=== PATIENT | male | born 1960 | race Caucasian/White ===

== ENCOUNTER → 2018-02-21 | Outpatient (CLI) | payer OTHER ==
[~2018-02-21] MED LIST: ASPIR-LOW81 MG PO; ASPIRIN E.C. 8181 MG PO; CARDENE 20MG CA20 M1 PO; CELEXA 20MG20 MG/TAB PO; CEPHALEXIN500 M1 PO; EFFIENT10 MG PO; IMDUR 30MG30 MG/TAB PO; LIPITOR 80MG80 MG PO; LOPRESSOR 225 MG/TAB PO; LOPRESSOR PO; NITROSTAT0.4 MG/TAB SL; PLAVIX 75MG TAB75 MG PO; ZESTRIL 5MG5 MG PO; ZOCOR 20MG20 MG PO
== END ==
LOC: COL.RAD 14:36
DX: Z02.71 Encounter for disability determination (principal); M25.862 Other specified joint disorders, left knee; Z98.890 Other specified postprocedural states